=== PATIENT | female | born 1990 | race Caucasian/White ===

== ENCOUNTER → 2016-05-15 | Outpatient (CLI) | payer OTHER ==
[~2016-05-15] MED LIST: PRENTAB26 PO
[2016-05-15 11:20] LABS: HEMATOCRIT 37.3 % (37-47)
[2016-05-15 11:59] LABS: GTGD 50 Grams
[2016-05-15 12:10] LABS: URINE APPEARANCE CLEAR (CLEAR); URINE BILIRUBIN NEG (NEG); URINE COLOR YELLOW; URINE EPITHELIAL CELL AUTO >30 /lpf (0-5); URINE NITRITE NEG (NEG); URINE PH 8.5 (4.5-7.5); URINE SPECIFIC GRAVITY 1.017 (1.000-1.030); UROBILINOGEN NEG (NEG)
[2016-05-15 12:13] LABS: MANUAL MICROSCOPIC REQUIRED? NO; REVIEW REQ? NO
== END | disposition home or self-care (01) ==
LOC: C.LAB1850 09:54
PROVIDERS: ATTEND Obstetrics & Gynecology
DX: Z34.83 Encounter for supervision of other normal pregnancy, third trimester (principal)

== ENCOUNTER → 2016-07-09 | Outpatient (CLI) | payer OTHER | END | disposition home or self-care (01) | LOC: C.LABSPEC 13:34 | PROVIDERS: ATTEND Obstetrics & Gynecology | DX: Z34.83 Encounter for supervision of other normal pregnancy, third trimester (principal) ==

== ENCOUNTER 2016-08-14 07:55 | Inpatient (IN) | payer OTHER ==
[~2016-08-14] VITALS: Ht 172.7 cm; Wt 76.4 kg
[2016-08-14] MEDS ORDERED: LACTATED RINGER'S 1000ML 1,000 ML IV SCH (09:02)
[2016-08-14] MEDS ORDERED: LACTATED RINGER'S 1000ML 1,000 ML IV PRN (09:02)
[2016-08-14] MEDS ORDERED: LACTATED RINGER'S 1000ML 500 ML IV PRN ×2 (09:03→13:34)
[2016-08-14] MEDS ORDERED: OXYTOCIN 30 UNITS/500ML NSS IV PRN ×2 (09:15→14:15)
[2016-08-14 09:43] LABS: HEMATOCRIT 35.6 % (37-47); MEAN CELL VOLUME 90.8 fL (80-100); MEAN CORPUSCULAR HEMOGLOBIN 30.4 pg (25-34); MEAN CORPUSCULAR HGB CONC 33.4 g/dl (32-36); MEAN PLATELET VOLUME 10.9 fL (7.4-10.4); PLATELET COUNT 249 K/uL (130-400); RED BLOOD COUNT 3.92 M/uL (4.2-5.4); WHITE BLOOD COUNT 10.81 K/uL (4.8-10.8)
[2016-08-14] MEDS ORDERED: PRENTAB26 PO (10:55)
[2016-08-14 10:56] VITALS: Ht 172.7 cm; Wt 76.4 kg
[2016-08-14] MEDS ORDERED: BUPIVACAINE 0.25% 30 ML VIAL ONE (12:04)
[2016-08-14] MEDS ORDERED: EpHEDrine SULFATE INJ 50 MG/ML AMP ONE (12:04)
[2016-08-14] MEDS ORDERED: FENTANYL 2MCG/ML ROPIV 1.25MG/ML 100ML BAG EPI ONE (12:04)
[2016-08-14] MEDS ORDERED: FENTANYL CITRATE INJ 50 MCG/1 ML 2 ML VIAL ONE (12:05)
[2016-08-14] MEDS ORDERED: NALOXONE HCL INJ 1 MG in SODIUM CHLORIDE 0.9% 1000ML 1,000 ML IV PRN (13:34)
[2016-08-14] MEDS ORDERED: DiphenhydrAMINE HCL 50 MG/ML VIAL IV PRN (13:45)
[2016-08-14] MEDS ORDERED: NALOXONE HCL INJ 0.4 MG/1 ML VIAL/CARP IV PRN (13:45)
[2016-08-14] MEDS ORDERED: NALBUPHINE HCL INJ 10 MG/ML AMP IV PRN (13:45)
[2016-08-14] MEDS ORDERED: EpHEDrine SULFATE INJ 50 MG/ML AMP IV PRN (13:45)
[2016-08-14] MEDS ORDERED: FENTANYL 2MCG/ML ROPIV 1.25MG/ML 100ML BAG EPI PRN (13:45)
[2016-08-14] MEDS ORDERED: ONDANSETRON INJ 2 MG/ML 2 ML VIAL IV PRN (13:45)
[2016-08-14] MEDS ORDERED: DIPHTHERIA/TETANUS/PERTUSSIS 0.5 ML SYR/VIAL IM. ONE (14:15)
[2016-08-14] MEDS ORDERED: ACETAMINOPHEN 325 MG TAB PO PRN (14:15)
[2016-08-14] MEDS ORDERED: BENZOCAINE 20% AER SPR 82.5 GM CAN EXT PRN (14:15)
[2016-08-14] MEDS ORDERED: OXYCODONE/ACETAMINOPHEN 5-325 TAB PO PRN (14:15)
[2016-08-14] MEDS ORDERED: LANOLIN OINT EXT PRN ×2 (14:15)
[2016-08-14] MEDS ORDERED: ACETAMINOPHEN/CODEINE 300/30MG TAB PO PRN ×2 (14:15)
[2016-08-14] MEDS ORDERED: HYDROCORTISONE ACETATE 25 MG SUPP PR PRN (14:15)
[2016-08-14] MEDS ORDERED: SUPERCREAM 0.870 % 15GM JAR EXT PRN (14:15)
--- NOTE | 2016-08-14 14:35 | Anesthesia Procedure Note ---
Anesthesia Epidural Removal Nt Date & Time Aug 14, 2016 at 14:34 Vital Signs Pain Intensity: 7.0 Notes Mental Status: alert / awake / arousable, participated in evaluation Nausea / Vomiting: adequately controlled Pain: adequately controlled Airway Patency, RR, SpO2: stable & adequate BP & HR: stable & adequate Hydration State: stable & adequate Neuraxial Anesthesia: was administered Anesthetic Complications: no major complications apparent, pt satisfied with anesthetic care Epidural: removed without complications, with tip intact
--- NOTE | 2016-08-14 14:48 | DELIVERY SUMMARY ---
DATE OF OPERATION: 08/14/2016 DATE OF DELIVERY: 08/14/2016. PREOPERATIVE DIAGNOSIS: Intrauterine at 41-2/7 weeks. POSTOPERATIVE DIAGNOSIS: Intrauterine at 41-2/7 weeks. PROCEDURES: 1. Pitocin augmentation. 2. Epidural anesthesia. 3. Normal spontaneous vaginal delivery. 4. Manual extraction of the placenta. 5. Second degree perineal laceration with repair. SURGEON: Dr. Wasserman. ANESTHESIA: Epidural. ESTIMATED BLOOD LOSS: 400 mL. PROCEDURE: The patient presented to labor and delivery for induction of labor for post dates. She was 4 and 75%. She underwent Pitocin augmentation and then when she got into a regular contraction pattern and was uncomfortable she received an epidural anesthetic. Shortly after receiving the epidural anesthetic she had rupture of membranes for clear fluid. She then progressed quickly to complete complete and +2 station. The patient pushed well over 2 contractions to delivery a viable female infant in BRIDGETT presentation. The nose and mouth were bulb suctioned. Nuchal cord x3 was reduced. The rest of the was then delivered without difficulty. There was immediate cry. The baby was resuscitated, dried, and then nose and mouth were bulb suctioned again. The baby was placed on the maternal abdomen where the cord was clamped and cut. Cord blood and segment were obtained. On attempt to deliver the placenta the umbilical cord avulsed and so manual extraction was required for a somewhat adherent placenta. Two more sweeps of the uterus with the operators hand revealed no further retained products of conception. Hemostasis was obtained with dilute Pitocin and fundal massage. A small second degree perineal laceration was repaired in the normal standard fashion. Apgars were 8 and 9. Estimated blood loss 400 mL. Mother and baby doing well at the end of the delivery. I attest to the content of the Intraoperative Record and any orders documented therein. Any exceptio ns are noted below.
[2016-08-14 17:00] VITALS: BP 128/68; PULSE 81; TEMP 36.5; O2SAT 98
[2016-08-14 19:49] VITALS: BP 124/74; PULSE 68; TEMP 36.7
[2016-08-14] MEDS: DOCUSATE SODIUM 100 MG CAP PO SCH (19:52)
[2016-08-14] MEDS: IBUPROFEN 600 MG TAB PO PRN (19:53)
[2016-08-15 00:05] VITALS: BP 111/75; PULSE 60; TEMP 36.6
[2016-08-15] MEDS: IBUPROFEN 600 MG TAB PO PRN ×2 (02:26→07:41)
[2016-08-15 04:00] VITALS: BP 126/83; PULSE 69; TEMP 36.7
--- NOTE | 2016-08-15 06:26 | Discharge Instructions ---
Discharge Instructions Date of Service Aug 15, 2016. Admission Reason for Admission: Induction Discharge Discharge Diagnosis / Problem: s/p vaginal delivery Discharge Goals Goal(s): Routine recovery after delivery Medications Continue Dispensed Medications: supercream, dermaplast, tucks, lansinoh Activity Recommendations Activity Limitations: as noted below . Instructions / Follow-Up Instructions / Follow-Up ACTIVITY RECOMMENDATIONS: * Gradual return to full activity over the next 2-3 weeks. * No lifting - nothing heavier than baby over the next 2-3 weeks. * Do not engage in vigorous exercise, sexual activity or sports until cleared by your physician. * Do not drive or operate any motorized equipment until cleared by your physician. * You may shower/bathe daily. MEDICATIONS: For discomfort or pain, you may use Acetaminophen (Tylenol), Ibuprofen (Advil), or Naproxen (Aleve) following the package directions. For constipation you may use Colace following the package directions. BREAST CARE: If you are not breast feeding: * Wear a supportive bra 24 hours a day for one to two weeks. * Avoid stimulating your breasts and nipples as much as possible during the first few weeks after delivery. * When taking a shower, have the warm water hit your back, not breasts. * When your breasts feel full, apply ice packs. Usually three to four times a day helps ease the discomfort. * Take a mild pain medication (Tylenol / Motrin) when you are uncomfortable. If breast feeding: * Use breast milk to lubricate nipples. Lansinoh cream may be used for sore nipples. You do not need to remove cream prior to breast feeding. If using a different brand of cream, check the label for directions regarding removal of cream prior to nursing. * Wear a supportive bra. * If having problems with breasts or breast feeding, call a business management consultant or your health care provider. EPISIOTOMY CARE: After delivery, if you have an episiotomy (stitches), the following steps will ease discomfort and aid healing. * For the first 24 hours after delivery, place ice packs next to your episiotomy to help reduce swelling. * After the first 24 hour-period, sitz baths, either portable or in the tub, are suggested. A shower with a shower arm sprayed over the episiotomy may be comforting. * Danita care should be done after each voiding and bowel movement. Squirt warm water from a plastic bottle over the perineum (region of the body between the anus and urinary opening) and pat dry. * Use Dermoplast to ease discomfort. Shake container. [place]ley directly over the episiotomy. Place a Tucks on a clean sanitary pad next to your episiotomy. SPECIAL CARE INSTRUCTIONS: When you are discharged from the hospital, it is important for you to follow the instructions listed below: * During the first week at home, you should be able to care for yourself and your baby. In addition, the usual light household activities are encouraged. * Limit your activities to the way you feel. Do not try to clean the house or move furniture. Be sensible. * If you actively engage in sports and have done so up until the time of your delivery, you may resume these activities as soon as you feel able. This may take up to one month or even longer. Use good judgment. * Continue to take your vitamins for at least six weeks after the of your baby. * Your diet need not be limited unless you were on a special diet before your delivery. Breast-feeding mothers need around 2500 calories per day and at least 64-80 ounces of fluid per day (8 to 10 glasses). * You should eat foods from the four major food groups. Crash diets or fad diets are to be avoided. Eating lean meats, fresh fruits and vegetables, low-fat dairy products, high fiber foods and a regular exercise program, will help you get back to your pre- weight without putting your health at risk. * Constipation is sometimes a problem after delivery. Take a mild laxative as needed. If breast feeding, Milk of Magnesia is acceptable to use. You may use a suppository or Fleets enema if no episiotomy. * A daily shower or tub bath is suggested. Be sure to thoroughly and gently dry the perineum. * A bloody vaginal discharge will usually continue until around four weeks post . A small amount of bleeding may continue for as long as six weeks. Vaginal discharge changes from the bright red bleeding after delivery to pink then brownish and finally yellowish-pink before becoming white and disappearing. * Bleeding may increase with activity. Your first period may come in 4-8 weeks. If you are breast feeding, your period may be delayed even longer. * [place] (sex) can begin whenever both you and your partner feel comfortable and do not have any form of genital infection. It is recommended that you wait at least six weeks for internal and external healing to occur. If you have questions, please talk to your health care practitioner. A condom should be used to prevent infection and . * Foreplay, gentle intercourse and lubrication is very important the first several times to prevent pain. A water-based lubricant such as K-Y jelly or Astroglide may be used. * If you have RH negative blood and your baby is RH positive, you will receive RHOGAM by injection prior to discharge. The nurse will give you a card to keep with you that has the date and place that you received RHOGAM after delivery. * During your care, you had a Rubella screen done to check for the presence of rubella antibodies in your blood. If your test was negative, you will receive a Rubella vaccine prior to discharge. This vaccine may cause a fever, soreness at the injection site and flu-like symptoms. If these symptoms persist, notify your health care practitioner. is not advised for one month after a Rubella vaccine. * Verbalizes understanding of car seat law as reviewed with patient nursing. * Car Seat hand-out given and reviewed with patient by nursing. * Shaken baby information reviewed with patient by nursing. Call you doctor if: * Heavy bleeding (saturating several pads an hour) or passing clots the size of your fist. * A fever >101 degrees F (38.3 degrees C) on two occasions four hours apart and /or chills. * Unusual pain in the pelvic or vaginal areas. * "Baby Blues" lasting longer than two weeks. If you have any questions or concerns, call your health care practitioner at . FOLLOW UP VISIT: * Please call the office at to schedule a 6 week examination. It is important you keep this appointment. It is important for you to make arrangements for either yearly or twice yearly check-ups thereafter. Current Hospital Diet Patient's current hospital diet: Regular OB Diet Discharge Diet Recommended Diet: Regular Diet Pending Studies Studies pending at discharge: no Medical Emergencies . Who to Call and When: Medical Emergencies: If at any time you feel your situation is an emergency, please call 911 immediately. . Non-Emergent Contact Non-Emergency issues call your: Gre Instructor . . "Provider Documentation" section prepared by Caleb Buenrostro. . VTE Core Measure Inpt VTE Proph given/why not?: Treatment not indicated
--- NOTE | 2016-08-15 06:30 | Progress Note ---
Subjective Aug 15, 2016. Subjective conversation w/ patient, physical exam, lab review Ambulation: ambulating normally Voiding: no voiding problems Passing Gas: Yes Diet Tolerance: Regular Diet Lochia: Small Feeding Type: Breast Feeding Pain: minimal and controlled Objective Vital Signs Date Time Temp Pulse Resp B/P Pulse Ox O2 Delivery O2 Flow Rate FiO2 08/15/16 04:00 36.7 69 18 126/83 Room Air 08/15/16 00:05 36.6 60 20 111/75 Room Air 08/15/16 00:05 Room Air 08/14/16 19:49 36.7 68 20 124/74 Room Air 08/14/16 17:00 98 Room Air 08/14/16 17:00 36.5 81 18 128/68 98 Room Air Physical Exam General Appearance: WELL-APPEARING, WD/WN, NO APPARENT DISTRESS Respiratory/Chest: lungs clear, normal breath sounds Cardiovascular: regular rate, rhythm Abdomen: normal bowel sounds, non tender, soft Fundus: Firm, Non-Tender, Relation to Umbilicus (1 below u) Extremities: non-tender, normal inspection, no pedal edema Laboratory Results Last 24 Hours Test 08/14/16 09:22 08/15/16 04:44 White Blood Count 10.81 K/uL Red Blood Count 3.92 M/uL Hemoglobin 11.9 g/dL Hematocrit 35.6 % Mean Corpuscular Volume 90.8 fL Mean Corpuscular Hemoglobin 30.4 pg Mean Corpuscular Hemoglobin Concent 33.4 g/dl RDW Standard Deviation 45.9 fL RDW Coefficient of Variation 13.9 % Platelet Count 249 K/uL Mean Platelet Volume 10.9 fL Assessment and Plan Post- Day#: 1 Continue Routine Care: Patient would like to be d/c this pm if ok with baby. Routine care. d/c instructions given.
[2016-08-15 07:04] LABS: HEMATOCRIT 33.1 % (37-47)
[2016-08-15] MEDS: DOCUSATE SODIUM 100 MG CAP PO SCH (07:41)
[2016-08-15] MEDS ORDERED: PRENATAL VITAMIN TAB PO SCH (08:00)
[2016-08-15 08:10] VITALS: BP 122/83; PULSE 71; TEMP 36.9; O2SAT 98
[2016-08-15 13:00] VITALS: BP 113/72; PULSE 71; TEMP 36.9; O2SAT 98
[2016-08-15 14:00] VITALS: BP_DIAS 72; PULSE 71; TEMP 36.9
== END 2016-08-15 14:35 | disposition home or self-care (01) | DRG 775 ==
LOC: C.LD 07:55 → C.OBG 17:02
PROVIDERS: ADMIT Obstetrics & Gynecology; ATTEND Obstetrics & Gynecology
PROC: 0KQM0ZZ Repair Perineum Muscle, Open Approach (ICD-10-PCS; principal; 2016-08-14)
PROC: 3E033VJ Introduction of Other Hormone into Peripheral Vein, Percutaneous Approach (ICD-10-PCS; principal; 2016-08-14)
PROC: 10E0XZZ Delivery of Products of Conception, External Approach (ICD-10-PCS; principal; 2016-08-14)
DX: O48.0 Post-term pregnancy (principal); Z37.0 Single live birth; O70.1 Second degree perineal laceration during delivery; Z3A.41 41 weeks gestation of pregnancy; O76 Abnormality in fetal heart rate and rhythm complicating labor and delivery; O43.893 Other placental disorders, third trimester; O69.81X0 Labor and delivery complicated by cord around neck, without compression, not applicable or unspecified; O99.52 Diseases of the respiratory system complicating childbirth; J45.909 Unspecified asthma, uncomplicated; Z79.899 Other long term (current) drug therapy